=== PATIENT | female | born 1950 | race Asian ===

== ENCOUNTER 2017-11-17 19:10 | Emergency (ER) | payer OTHER ==
[~2017-11-17] VITALS: Ht 152.4 cm; Wt 56.7 kg
[~2017-11-17 19:10] MED LIST: ALEN70TA19 PO; ASA LOW DOSE81 MG PO; ATIVAN2 MG PO; CALCIUM + D600 MG PO; DESMOPRESSIN0.2 MG PO; DIVA250T2 PO; DIVA500T2 PO; DOCU100C10 PO; DRISDOL50000 UNT PO; FIBER PO; GLUMETZA500 MG PO; HALO50IN4 IM; LEVEMIR FL100 UNIT/M SC; LEXAPRO10 MG PO; LORTAB 5-325 MG1 TAB PO; RISP2TAB2 PO; RISP50IN IM; SEROQUEL200 MG PO; TRILEPTAL300 MG PO
[2017-11-17 20:17] LABS: PLATELET COUNT 264 K/uL (152-353)
[2017-11-17 20:24] LABS: POTASSIUM 3.9 mmol/L (3.6-5.2)
[2017-11-17] MEDS ORDERED: RISP50IN IM (20:40)
[2017-11-17] MEDS ORDERED: ZIPR20IN IM (20:43)
[2017-11-17] MEDS ORDERED: OLANZAPINE10 M1 IM (20:44)
[2017-11-17] MEDS ORDERED: ALUM-67 PO (20:46)
[2017-11-17 20:47] VITALS: BP 145/70; TEMP 98.8
[2017-11-17] MEDS ORDERED: MAGNSUS68 PO (20:47)
[2017-11-17] MEDS ORDERED: TYLENOL325 MG PO (20:48)
[2017-11-17] MEDS ORDERED: NOVOLOG SC (20:49)
== END 2017-11-17 20:49 | disposition other institution (70) ==
LOC: ED 19:10
DX: E11.9 Type 2 diabetes mellitus without complications (principal); Z04.6 Encounter for general psychiatric examination, requested by authority
CPT/HCPCS: 80053; 81000; 85027; 93005; 99284

== ENCOUNTER 2018-12-31 21:03 | Emergency (ER) | payer OTHER ==
[~2018-12-31] VITALS: Ht 162.6 cm; Wt 63.5 kg
[~2018-12-31 21:03] MED LIST changes: +ALUM-67 PO; +MAGNSUS68 PO; +NOVOLOG SC; +OLAN10INJ IM; +OLANZAPINE10 M1 IM; +TYLENOL325 MG PO; +ZIPR20IN IM
[2018-12-31 21:43] VITALS: BP 133/62; TEMP 98.3
[2018-12-31] MEDS ORDERED: [UNRECOGNIZED DRUG - CODE] PO (23:31)
[2018-12-31 23:40] LABS: PLATELET COUNT 246 K/uL (152-353)
[2018-12-31 23:42] LABS: POTASSIUM 3.8 mmol/L (3.6-5.2)
[2018-12-31] MEDS ORDERED: HALO50IN4 IM (23:52)
[2018-12-31] MEDS ORDERED: RISP50IN IM (23:53)
== END 2018-12-31 21:43 | disposition other institution (70) ==
LOC: ED 21:03
PROVIDERS: Student in an Organized Health Care Education/Training Program
DX: F91.1 Conduct disorder, childhood-onset type (principal); R82.998 Other abnormal findings in urine
CPT/HCPCS: 80053; 81000; 85027; 87086; 87088; 93005; 99285

== ENCOUNTER 2020-09-15 03:00 | Emergency (ER) | payer OTHER ==
[~2020-09-15] VITALS: Ht 152.4 cm; Wt 70.3 kg
[2020-09-15 03:00] VITALS: TEMP 99.3
[~2020-09-15 03:00] MED LIST changes: +VITAMIN D50000 UNIT PO; +[UNRECOGNIZED DRUG - CODE] PO
[2020-09-15 04:00] LABS: PLATELET COUNT 206 K/uL (152-353)
[2020-09-15 04:04] LABS: POTASSIUM 3.6 mmol/L (3.6-5.2)
[2020-09-15 05:45] VITALS: BP 145/60
[2020-09-15] MEDS ORDERED: RISP50IN IM (06:03)
[2020-09-15] MEDS ORDERED: OLANZAPINE10 M3 IM (06:05)
[2020-09-15] MEDS ORDERED: HALO50IN4 IM (06:07)
[2020-10-04] MEDS ORDERED: MAGN400T4 PO (10:03)
[2020-10-04] MEDS ORDERED: OLAN10INJ IM (10:03)
[2020-10-04] MEDS ORDERED: HALO50IN4 IM (10:03)
[2020-10-04] MEDS ORDERED: RISP50IN IM (10:03)
[2020-10-04] MEDS ORDERED: CHOL100034 PO (10:04)
[2020-10-04] MEDS ORDERED: ACET-206 PO (10:04)
== END 2020-09-15 05:45 | disposition other institution (70) ==
LOC: ED 03:00
PROVIDERS: Family Medicine
DX: R46.89 Other symptoms and signs involving appearance and behavior (principal); F20.89 Other schizophrenia; Z11.59 Encounter for screening for other viral diseases; Z04.6 Encounter for general psychiatric examination, requested by authority
CPT/HCPCS: 36415; 80053; 81000; 85027; 87635; 93005; 99283; U0003